=== PATIENT | male | born 1950 | race Caucasian/White ===

== ENCOUNTER 2019-02-21 20:37 | Emergency (ER) | payer BC, MEDICARE ==
[~2019-02-21 20:37] MED LIST: Iopamidol 370 76% 100 ML VIAL ONE
[2019-02-21 21:22] LABS: #Eosinphils 0.1 thou/uL (0.0-0.7); #Lymphocytes 0.7 thou/uL (1.20-3.40); #Monocytes 0.5 thou/uL (0.11-0.59); #Neutrophils 7.2 thou/uL (1.40-6.50); %Basophils 0.1 % (0.0-1.0); %Eosinophils 1.5 % (0.0-10.0); %Neutrophils 84.4 % (42.0-75.0); Mean Corpuscular Hemoglobin 29.1 pg (27.0-31.0); Mean Corpuscular Volume 83.3 fL (78.0-98.0); Mean Platelet Volume 7.4 fL (7.4-10.4); Platelet Count 175 thou/uL (130-400); RBC Distribution Width 12.5 % (11.5-14.5); Red Blood Cell (RBC) Count 4.46 mill/uL (4.70-6.10); White Blood Cell (WBC) Count 8.5 thou/uL (4.8-10.8)
--- NOTE | 2019-02-21 21:29 | RAD ---
XR Chest 1 View Portable HISTORY: Right-sided pain. Shortness of breath. COMPARISON: 08/12/2015 exam. FINDINGS: Heart size is enlarged. Some linear interstitial changes in the bases suggest atelectasis. No signs of overt failure or focal infiltrates. IMPRESSION: Linear atelectasis in the lung bases. Cardiomegaly.
[2019-02-21 21:41] LABS: ALT (SGPT) 107 U/L (8-55); AST (SGOT) 69 U/L (5-34); Alkaline Phosphatase 215 U/L (40-110); Anion Gap 13 mmol/L (10-20); BUN (Urea Nitrogen) 11 mg/dL (8.4-25.7); Bilirubin, Total 0.7 mg/dL (0.2-1.2); Calc. Creatinine Clearance 0 mL/min (70-130); Carbon Dioxide 22 mmol/L (23-31); Chloride 104 mmol/L (98-107); Estimated GFR-MDRD 86; Glucose 196 mg/dL (80-115); Lipase 43 U/L (8-78); Potassium 3.3 mmol/L (3.5-5.1); Sodium 136 mmol/L (136-145)
[2019-02-21] MEDS ORDERED: Ondansetron PF 4 MG/2 ML Vial ONE (22:58)
[2019-02-21] MEDS ORDERED: Morphine 4 MG/ML VIAL ONE (22:58)
--- NOTE | 2019-02-21 23:05 | CT ---
CT Abdomen Pelvis W Con HISTORY: Right-sided abdomen pain. Diarrhea. Prostate cancer. COMPARISON: 06/13/2016 study. FINDINGS: The lung bases show subsegmental atelectatic change. The liver has a very heterogeneous appearance with fatty change. Liver shows a very heterogeneous diego earance I believe that this is related to the fatty change cannot totally exclude the possibly at there are masses Heaven no definitive distortion of the vessels. An ultrasound would be helpful in co nfirming the lack of any mass. The liver is enlarged measuring greater than 24 cm. The spleen measures 13.5 cm. Pancreas region is unremarkable. Gallbladder has been removed. Right and left adrenal glands and right and left kidneys are normal in size. There is no significant periaortic or mesenteric lymphadenopathy. CT of pelvis performed with contrast enhancement: Postop prostatectomy changes noted. No adenopathy o r mass. There are arthritic changes of the spine with bilateral pars defects and spondylolisthesis of L5 on S 1. IMPRESSION: 1. Enlarged liver with fatty change with a heterogeneous appearance which I believe is related to the fatty change and less likely related to mass lesions although the possibility of diffuse masses are not totally excluded. Ultrasound would be helpful in excluding this possibility. 2. Postop prostatectomy change.
--- NOTE | 2019-02-24 15:38 | EKG ---
Test Reason : CP Blood Pressure : / mmHG Vent. Rate : 078 BPM Atrial Rate : 078 BPM P-R Int : 166 ms QRS Dur : 108 ms QT Int : 454 ms P-R-T Axes : 019 003 027 degrees QTc Int : 517 ms Normal sinus rhythm Incomplete right bundle branch block Nonspecific T wave abnormality Prolonged QT Abnormal ECG Confirmed by GABINO PINEDA DO ([id number]), assistant production editor REYNALDO PEDRAZA ([id number]) on 02/24/2019 3:38:16 PM Referred By: Confirmed By:GABINO PINEDA DO
== END 2019-02-21 22:48 | disposition home or self-care (01) ==
LOC: ERS 20:37
DX: K76.0 Fatty (change of) liver, not elsewhere classified (principal); R94.5 Abnormal results of liver function studies; K21.9 Gastro-esophageal reflux disease without esophagitis; I10 Essential (primary) hypertension; F17.220 Nicotine dependence, chewing tobacco, uncomplicated; Z79.899 Other long term (current) drug therapy
CPT/HCPCS: 71045; 74177; 80053; 83690; 84484; 85025; 93005; 96361; 96374; 96375; J2270; J2405; Q9967

== ENCOUNTER 2019-02-23 15:46 | Inpatient (IN) | payer BC, MEDICARE ==
[2019-02-23] MEDS ORDERED: traMADol HCl 50 MG TAB PO PRN (17:52)
[2019-02-23 18:09] VITALS: BMI 38.8
[2019-02-23] MEDS: traMADol HCl 50 MG TAB PO PRN (18:12)
[2019-02-23 18:29] LABS: #Lymphocytes 0.6 thou/uL (1.20-3.40); #Monocytes 0.4 thou/uL (0.11-0.59); #Neutrophils 6.9 thou/uL (1.40-6.50); %Basophils 0.1 % (0.0-1.0); %Eosinophils 0.5 % (0.0-10.0); %Lymphocytes 7.1 % (21.0-51.0); %Monocytes 5.4 % (0.0-10.0); %Neutrophils 86.9 % (42.0-75.0); Hemoglobin 12.7 g/dL (14.0-18.0); Mean Corpuscular Hemoglobin 28.7 pg (27.0-31.0); Mean Corpuscular Volume 84.4 fL (78.0-98.0); Mean Platelet Volume 7.2 fL (7.4-10.4); Platelet Count 182 thou/uL (130-400); RBC Distribution Width 12.7 % (11.5-14.5); Red Blood Cell (RBC) Count 4.44 mill/uL (4.70-6.10); White Blood Cell (WBC) Count 7.9 thou/uL (4.8-10.8)
[2019-02-23 18:35] LABS: Prothrombin Time 13.5 SEC (12.0-14.7)
[2019-02-23 18:49] LABS: ALT (SGPT) 100 U/L (8-55); AST (SGOT) 72 U/L (5-34); Albumin 3.9 g/dL (3.4-4.8); Alkaline Phosphatase 221 U/L (40-110); Anion Gap 12 mmol/L (10-20); BUN (Urea Nitrogen) 14 mg/dL (8.4-25.7); Bilirubin, Total 1.2 mg/dL (0.2-1.2); Calc. Creatinine Clearance 129 mL/min (70-130); Calcium 9.3 mg/dL (7.8-10.44); Carbon Dioxide 25 mmol/L (23-31); Chloride 103 mmol/L (98-107); Estimated GFR-MDRD 79; Globulin 3.2 g/dL (2.4-3.5); Glucose 211 mg/dL (80-115); Potassium 3.5 mmol/L (3.5-5.1); Protein, Total 7.1 g/dL (5.8-8.1); Sodium 136 mmol/L (136-145)
[2019-02-23] MEDS ORDERED: Senokot S 8.6-50 MG TAB PO PRN (18:56)
[2019-02-23] MEDS ORDERED: Morphine 4 MG/ML VIAL SLOW IVP PRN (19:01)
[2019-02-23] MEDS ORDERED: Morphine 2 MG/ML SYRINGE SLOW IVP PRN ×2 (19:01→19:03)
[2019-02-23] MEDS: Multivitamins, Adult 10 ML in Lactated Ringer's 1,000 ML IV SCH (20:12)
[2019-02-23 20:16] LABS: Bacteria/HPF None Seen HPF (None Seen); Bilirubin Negative (Negative); Blood, Urine Negative (Negative); Clarity Clear (Clear); Glucose, Urine (Dipstick) Normal (Negative); Leukocyte Negative Leu/uL (Negative); Nitrite Negative (Negative); Protein, Urine (Dipstick) 30 mg/dL (Neg-Trace); RBC/HPF 0-3 HPF (0-3); Squamous Epithelial 0-3 HPF (0-3); WBC/HPF 0-3 HPF (0-3)
[2019-02-23] MEDS: Fentanyl 100 MCG/2 ML VIAL SLOW IVP PRN (21:58)
--- NOTE | 2019-02-23 22:04 | PDOC.HHP ---
Hospitalist HPI - History of Present Illness abdominal/flank pain History of Present Illness: 68M sent over as a direct admit from Dr. Min's office for x2 weeks of increasing right sided abdominal pain causing him to go to the ED on Saturday for pain control. He was found to have an enlarged liver on recent CT scan and elevated LFT's. He was seen by GI today and sent here for further work-up. C/o of dysuria, constipation x2 days, normally drinks alcohol but has not had a drink in 3 weeks. C/o of nausea, denies vomiting. Hospitalist ROS - Review of Systems Constitutional: reports: chills Eyes: denies: pain, vision change, conjunctivae inflammation, eyelid inflammation, redness, other ENT: denies: ear pain, ear discharge, nose pain, nose discharge, nose congestion , mouth pain, mouth swelling, throat pain, throat swelling, other Respiratory: denies: cough, dry, shortness of breath, hemoptysis, SOB with excertion, pleuritic pain, sputum, wheezing, other Cardiovascular: denies: chest pain, palpitations, orthopnea, paroxysmal noc. dyspnea, edema, light headedness, other Gastrointestinal: reports: nausea, abdominal pain, constipation Genitourinary: reports: dysuria Musculoskeletal: denies: neck pain, shoulder pain, arm pain, back pain, hand pain, leg pain, foot pain, other Skin: reports: gladys Neurological: denies: weakness, numbness, incoordination, change in speech, confusion, seizures, other - Medication Medications: Active Medications Generic Name Dose Route Start Last Admin Trade Name Freq PRN Reason Stop Dose Admin Multivitamins 10 ml/ Lactated 1,010 mls @ 75 mls/hr 02/23/19 18:00 02/23/19 20:12 Ringer's IV 1,010 mls Q24HR ARRON Administration Tramadol HCl 100 mg 02/23/19 17:53 02/23/19 18:12 Ultram PO 100 mg TIDPRN PRN Administration Moderate to Severe Pain (6-10) Hospitalist History - Past Medical History Cardiac: reports: no pertinent history, HTN, Hyperlipidemia Pulmonary: reports: no pertinent history [employer]: reports: no pertinent history Gastrointestinal: reports: GERD, Other (arnold's esophagus) Hepatobiliary: reports: no pertinent history, Cirrhosis, Hep A/B/C Psych: reports: no pertinent history Musculoskeletal: reports: Other (gout) Rheumatologic: reports: Gout Renal/: reports: Other (prostate ca) - Past Surgical History Past Surgical History: reports: Appendectomy, Cholecystectomy, TURP - Family History Family History: reports: gastrointestinal disorder - Social History Tobacco Type: chewing tobacco Alcohol: reports: Heavy Drugs: reports: none Living Situation: With Family Activity level: independent ambulation - Exam General Appearance: awake alert Eye: PERRL, scleral icterus ENT: normocephalic atraumatic, moist mucosa Neck: supple, no JVD Heart: RRR, normal peripheral pulses Respiratory: CTAB, normal chest expansion Gastrointestinal: soft, normal bowel sounds, tender to palpation, distended. negative: no hepatomegaly Extremities: no edema Skin: normal turgor Skin - other findings: yellow tint to skin Neurological: cranial nerve grossly intact Musculoskeletal: normal tone, normal strength Psychiatric: normal affect, A&O x 3 Hospitalist Results - Labs Result Diagrams: 02/23/19 18:18 02/23/19 18:18 Lab results: WBC 7.9 thou/uL (4.8-10.8) 02/23/19 18:18 Hgb 12.7 g/dL (14.0-18.0) L 02/23/19 18:18 Hct 37.4 % (42.0-52.0) L 02/23/19 18:18 MCV 84.4 fL (78.0-98.0) 02/23/19 18:18 Plt Count 182 thou/uL (130-400) 02/23/19 18:18 Neutrophils % 86.9 % (42.0-75.0) H 02/23/19 18:18 Sodium 136 mmol/L (136-145) 02/23/19 18:18 Potassium 3.5 mmol/L (3.5-5.1) 02/23/19 18:18 Chloride 103 mmol/L (98-107) 02/23/19 18:18 Carbon Dioxide 25 mmol/L (23-31) 02/23/19 18:18 BUN 14 mg/dL (8.4-25.7) 02/23/19 18:18 Creatinine 0.95 mg/dL (0.7-1.3) 02/23/19 18:18 Glucose 211 mg/dL (80-115) H 02/23/19 18:18 Calcium 9.3 mg/dL (7.8-10.44) 02/23/19 18:18 Total Bilirubin 1.2 mg/dL (0.2-1.2) 02/23/19 18:18 AST 72 U/L (5-34) H 02/23/19 18:18 ALT 100 U/L (8-55) H 02/23/19 18:18 Alkaline Phosphatase 221 U/L (40-110) H 02/23/19 18:18 Serum Total Protein 7.1 g/dL (5.8-8.1) 02/23/19 18:18 Albumin 3.9 g/dL (3.4-4.8) 02/23/19 18:18 Urine Ketones Trace mg/dL (Negative) A 02/23/19 19:51 Urine Blood Negative (Negative) 02/23/19 19:51 Urine Nitrite Negative (Negative) 02/23/19 19:51 Ur Leukocyte Esterase Negative Shira/uL (Negative) 02/23/19 19:51 Urine RBC 0-3 HPF (0-3) 02/23/19 19:51 Urine WBC 0-3 HPF (0-3) 02/23/19 19:51 Ur Squamous Epith Cells 0-3 HPF (0-3) 02/23/19 19:51 Urine Bacteria None Seen HPF (None Seen) 02/23/19 19:51 Hospitalist H&P A/P - Problem (1) Gout Code(s): M10.9 - GOUT, UNSPECIFIED Status: Chronic (2) Hyperlipidemia Code(s): E78.5 - HYPERLIPIDEMIA, UNSPECIFIED Status: Chronic (3) Hypertension Code(s): I10 - ESSENTIAL (PRIMARY) HYPERTENSION Status: Chronic (4) Alcoholic hepatitis Code(s): K70.10 - ALCOHOLIC HEPATITIS WITHOUT ASCITES Status: Acute (5) Hepatomegaly Code(s): R16.0 - HEPATOMEGALY, NOT ELSEWHERE CLASSIFIED Status: Acute (6) Prostate cancer Code(s): C61 - MALIGNANT NEOPLASM OF PROSTATE Status: Chronic - Plan Plan: # Dysuria: UA ordered # RUQ pain r/t hepatomegaly, alcoholic hepatitis: recheck labs in AM, pain medicine, protonix daily, IV fluids, banana bag, GI consult # Gout: restart home meds # HTN: restart home meds, add prn meds as needed # ETOH abuse: banana bag, thiamine, ASE protocol # Gerd: see #2 # DVT prevention ordered # Senokot S as needed for constipation Case discussed with Dr. Beard who agrees to plan
--- NOTE | 2019-02-24 01:10 | CON ---
DATE OF CONSULTATION: 02/23/2019 CHIEF COMPLAINT: Abdominal pain. HISTORY OF PRESENT ILLNESS: Mr. Luo is a 68-year-old man, who has had some right upper quadrant pain chronically over the last few years. He had undergone EGD and colonoscopy in June 2016. 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 Upper endoscopy was otherwise unremarkable except for some fundic gland polyps in the stomach that required no further intervention. His colon was normal except for a hyperplastic polyp, which was removed. Starting 3 weeks ago, he developed severe right-sided aching abdominal pain. The pain is below the right ribs and radiates around to his right back. He has had no nausea or vomiting with this. He has had some constipation over the last few months and has firmer stools every 2 or 3 days. He felt a little constipated on Saturday and he took a stimulant laxative. He believes Dulcolax and had a formed bowel movement and then a couple of liquidy stools. He went onto the emergency room yesterday due to ongoing severe abdominal pain. He had a CT scan performed that showed hepatomegaly and fatty liver. However, no obvious source for the abdominal pain was identified. He at baseline drinks 4-5 beers per day that quit 3 weeks ago due to the pain. He has had no blood in the stools. No chest pain or shortness of breath. He has had some chronic right upper quadrant abdominal pain, but this has been milder and different from the current pain. He has had no known prior kidney stones. He has had no rash developed over his abdomen in the area of the pain. PAST MEDICAL HISTORY: Ceballos's esophagus, prostate cancer treated with radiation and surgery, and alcohol abuse. PAST SURGICAL HISTORY: Appendectomy, cholecystectomy, prostatectomy. SOCIAL HISTORY: He drinks 5 or 6 beers per day, but states that he quit 3 weeks ago. He chews tobacco, but no smoking. No drugs. FAMILY HISTORY: Negative for GI malignancies. ALLERGIES: NO KNOWN DRUG ALLERGIES. MEDICATIONS: Prior to admission; 1. Allopurinol. 2. Amlodipine. 3. Pantoprazole. 4. Atorvastatin. REVIEW OF SYSTEMS: Negative x10 systems reviewed, except as stated in history of present illness. PHYSICAL EXAMINATION: VITAL SIGNS: Temperature 97.9, pulse 72, blood pressure 180/76. GENERAL: He is in no acute distress. Alert and oriented x3. He is obese. HEENT: Eyes have no scleral icterus. Oropharynx is clear without lesions. No cervical or supraclavicular lymphadenopathy. LUNGS: Clear to auscultation bilaterally. HEART: Regular rate and rhythm without murmur. ABDOMEN: Protuberant, but soft. He has marked tenderness over the right upper quadrant at the liver edge. States this pain radiates around towards the right flank. Again, there is no rash in this area. EXTREMITIES: No lower extremity edema. NEUROLOGIC: Cranial nerves are grossly intact. LABORATORY DATA: White blood cell count 7.9, hemoglobin 12.7, platelets 182, eosinophilic count is normal. INR 1.0. Creatinine 0.95, bilirubin 1.2, AST 72, ALT 100, alkaline phosphatase 221, albumin 3.9. IMPRESSION: 1. Right upper quadrant abdominal pain. He has significant tenderness over the liver edge. He has marked hepatomegaly and fatty liver. He could have some pain from distention of the liver capsule. His transaminases and alkaline phosphatase are elevated. He had been drinking at least 5 or 6 beers per day prior to 3 weeks ago. He does not have obvious signs of cirrhosis based on the current labs and imaging. Choledocholithiasis is a consideration. However, his bilirubin is normal. We will assess the size of his bile duct. There is no rash to suggest zoster. Kidney stone is a consideration and I will request urinalysis. I reviewed the CT scan images and there is no significant constipation in the right colon to indicate constipation as a source for his abdominal pain. Again, his liver is tender. 2. Hepatomegaly and abnormal liver tests. RECOMMENDATIONS: 1. Check viral hepatitis panel. 2. Check iron saturation, smooth muscle antibody, and mitochondrial antibody. 3. Check urinalysis. 4. Ultrasound of the liver with Dopplers. The large fatty liver was read by radiology such that ultrasound was also recommended to rule out a solid mass lesion. We will plan Dopplers to rule out hepatic vein thrombosis or portal vein thrombosis. Ultimately, MRI or MRCP might also be required. Job ID: [id number]
[2019-02-24] MEDS: Fentanyl 100 MCG/2 ML VIAL SLOW IVP PRN ×6 (01:11→21:37)
[2019-02-24] MEDS: traMADol HCl 50 MG TAB PO PRN ×2 (01:23→16:26)
[2019-02-24] MEDS: Amlodipine 10 MG TAB PO SCH (01:26)
[2019-02-24 05:36] LABS: INR-International Normal Ratio 1.1; PTT 32.1 SEC (22.9-36.1); Prothrombin Time 14.1 SEC (12.0-14.7)
[2019-02-24 05:43] LABS: #Eosinphils 0.2 thou/uL (0.0-0.7); #Lymphocytes 1.1 thou/uL (1.20-3.40); #Monocytes 0.6 thou/uL (0.11-0.59); #Neutrophils 5.7 thou/uL (1.40-6.50); %Basophils 0.4 % (0.0-1.0); %Eosinophils 2.6 % (0.0-10.0); %Monocytes 7.6 % (0.0-10.0); %Neutrophils 75.3 % (42.0-75.0); Hemoglobin 12.7 g/dL (14.0-18.0); Mean Corpuscular HGB CONC 33.3 g/dL (32.0-36.0); Mean Corpuscular Hemoglobin 28.3 pg (27.0-31.0); Mean Corpuscular Volume 85.1 fL (78.0-98.0); Mean Platelet Volume 7.4 fL (7.4-10.4); Platelet Count 196 thou/uL (130-400); RBC Distribution Width 12.7 % (11.5-14.5); Red Blood Cell (RBC) Count 4.49 mill/uL (4.70-6.10); White Blood Cell (WBC) Count 7.6 thou/uL (4.8-10.8)
[2019-02-24 06:11] LABS: ALT (SGPT) 108 U/L (8-55); AST (SGOT) 92 U/L (5-34); Albumin 3.7 g/dL (3.4-4.8); Alkaline Phosphatase 225 U/L (40-110); Anion Gap 12 mmol/L (10-20); BUN (Urea Nitrogen) 10 mg/dL (8.4-25.7); Bilirubin, Total 1.3 mg/dL (0.2-1.2); Calc. Creatinine Clearance 166 mL/min (70-130); Calcium 8.9 mg/dL (7.8-10.44); Carbon Dioxide 27 mmol/L (23-31); Chloride 104 mmol/L (98-107); Estimated GFR-MDRD Greater than 90; Globulin 3.1 g/dL (2.4-3.5); Glucose 111 mg/dL (80-115); Iron 40 ug/dL (65-175); Iron Binding Capacity, Total 291 mcg/dL (261-462); Potassium 3.6 mmol/L (3.5-5.1); Protein, Total 6.8 g/dL (5.8-8.1); Sodium 139 mmol/L (136-145)
[2019-02-24 06:29] LABS: HBCM Index 0.18 S/CO (0-0.79); HBSAg Index 0.17 S/CO (0-0.99); Hep A IgM AB Non-Reactive (NonReactive); Hep A IgM S/CO 0.37 S/CO (0-0.79); Hep B Surf Ag Non-Reactive S/CO (NonReactive); Hep C IgG Ab Non-Reactive (NonReactive); Hep C Index 0.11 S/CO (0-0.79); Hepatitis B Core IgM Abs Non-Reactive (NonReactive)
--- NOTE | 2019-02-24 08:53 | ULT ---
Exam: Grayscale imaging of the liver and hepatic Doppler HISTORY: Alcoholic hepatitis. Right upper quadrant pain. TECHNIQUE: Grayscale, color flow, Doppler imaging and spectral waveform analysis of the hepatic vascu lature is performed. FINDINGS: Limited evaluation of the aorta and pancreas due to shadowing. Heterogeneous echotexture of liver due to hepatic steatosis or hepatocellular disease. Limited evalua tion for hepatic masses and intrahepatic biliary dilatation. Surgically absent gallbladder. Right kidney demonstrates cortical thinning. No hydronephrosis. Right kidney measures 5.2 x 13.7 x 5. 3 cm. Left kidney demonstrates cortical thinning. No hydronephrosis. Left kidney measures 6.4 x 5.2 x 15.0 cm. Spleen has a normal echotexture, measuring 14.7 cm. Hepatic Doppler: There is patency and appropriate directional flow in the left portal vein, right por rory vein, main portal vein, middle hepatic vein, right hepatic vein, left hepatic vein, hepatic artery. Splenic vein and artery are patent and have appropriate directional flow. Limited evaluation the portal confluence. IMPRESSION: 1. Normal hepatic Doppler. 2. Heterogeneous echotexture of the liver which may be due to hepatic steatosis or hepatocellular dis ease. Limited evaluation for hepatic masses and intrahepatic biliary dilatation. 3. Splenomegaly. Transcribed Date/Time: 02/24/2019 9:50 AM
[2019-02-24] MEDS: Folic Acid 1 MG TAB PO SCH (09:23)
[2019-02-24] MEDS: Thiamine 100 MG TAB PO SCH (09:23)
[2019-02-24] MEDS: Allopurinol 300 MG TAB PO SCH (09:23)
[2019-02-24] MEDS: Enoxaparin Sodium 40 MG/0.4 ML SYRINGE SC SCH (09:24)
--- NOTE | 2019-02-24 12:22 | PDOC.HOSPP ---
- Subjective Encounter Date: 02/24/19 Encounter Time: 08:30 Subjective: c/o ruq pain, nausea, loss of appetite at bedside has not vomitted - Objective Vital Signs & Weight: Vital Signs (12 hours) Temp Pulse Resp BP BP BP 02/24/19 08:00 97.6 F 62 02/24/19 07:43 97.6 F 62 20 159/79 H 02/24/19 04:00 97.7 F 62 20 171/82 H 02/24/19 01:26 70 174/82 H Weight Weight 263 lb I&O: 02/23/19 02/24/19 02/25/19 06:59 06:59 06:59 Intake Total 480 Balance 480 Result Diagrams: 02/24/19 05:13 02/24/19 05:13 Hospitalist ROS - Medication Medications: Active Medications Generic Name Dose Route Start Last Admin Trade Name Freq PRN Reason Stop Dose Admin Allopurinol 300 mg 02/24/19 09:00 02/24/19 09:23 Zyloprim PO 300 mg DAILY ARRON Administration Amlodipine Besylate 10 mg 02/24/19 09:00 02/24/19 01:26 Norvasc PO 10 mg DAILY ARRON Administration Enoxaparin Sodium 40 mg 02/24/19 09:00 02/24/19 09:24 Lovenox SC 40 mg 0900 ARRON Administration Fentanyl 25 mcg 02/23/19 20:07 02/24/19 09:33 Sublimaze SLOW IVP 25 mcg Q2H PRN Administration Breakthrough Pain Folic Acid 1 mg 02/24/19 09:00 02/24/19 09:23 Folvite PO 1 mg DAILY ARRON Administration Multivitamins 10 ml/ Lactated 1,010 mls @ 75 mls/hr 02/23/19 18:00 02/23/19 20:12 Ringer's IV 1,010 mls Q24HR ARRON Administration Pantoprazole Sodium 40 mg 02/24/19 09:00 02/24/19 09:23 Protonix PO 40 mg DAILY ARRON Administration Sodium Chloride 10 ml 02/23/19 18:56 02/24/19 09:24 Flush - Normal Saline IVF 10 ml PRN PRN Administration Saline Flush Thiamine HCl 100 mg 02/24/19 09:00 02/24/19 09:23 Thiamine PO 100 mg DAILY ARRON Administration Tramadol HCl 100 mg 02/23/19 17:53 02/24/19 01:23 Ultram PO 100 mg TIDPRN PRN Administration Moderate to Severe Pain (6-10) - Exam General Appearance: awake alert Eye: PERRL, anicteric sclera ENT: no oropharyngeal lesions, moist mucosa Neck: supple, no JVD Heart: RRR, no murmur Respiratory: no wheezes, no rales Gastrointestinal: soft, non-distended, normal bowel sounds, no guarding, no rigidity, tender to palpation Extremities: no cyanosis, no edema Neurological: cranial nerve grossly intact, no focal deficits Psychiatric: normal affect, A&O x 3 Hosp A/P (1) Hepatomegaly Code(s): R16.0 - HEPATOMEGALY, NOT ELSEWHERE CLASSIFIED Status: Acute (2) Alcoholic hepatitis Code(s): K70.10 - ALCOHOLIC HEPATITIS WITHOUT ASCITES Status: Acute Qualifiers: Ascites presence: without ascites Qualified Code(s): K70.10 - Alcoholic hepatitis without ascites (3) Obesity (BMI 30-39.9) Code(s): E66.9 - OBESITY, UNSPECIFIED Status: Chronic (4) Gout Code(s): M10.9 - GOUT, UNSPECIFIED Status: Chronic Qualifiers: Gout site: unspecified site (5) Hyperlipidemia Code(s): E78.5 - HYPERLIPIDEMIA, UNSPECIFIED Status: Chronic Qualifiers: Hyperlipidemia type: unspecified Qualified Code(s): E78.5 - Hyperlipidemia , unspecified (6) Hypertension Code(s): I10 - ESSENTIAL (PRIMARY) HYPERTENSION Status: Chronic Qualifiers: Hypertension type: essential hypertension Qualified Code(s): I10 - Essential (primary) hypertension (7) Prostate cancer Code(s): C61 - MALIGNANT NEOPLASM OF PROSTATE Status: Chronic - Plan ruq usg did not show evidence of portal/hepatic vein thrombosis, biliary ducts were not visualized well? suggest small dose of steroids to help with pain? is on norvasc, fentanyl prn, iv hydration/banana bag, protonix hemostable dulcolax suppository, stool regimen, to ambulate in hallway
[2019-02-24] MEDS ORDERED: Bisacodyl 10 MG SUPP PR PRN (12:26)
[2019-02-24] MEDS ORDERED: Fleet Enema 133 ML BOT PR PRN (12:26)
[2019-02-24] MEDS ORDERED: Ondansetron PF 4 MG/2 ML Vial IVP PRN (15:28)
[2019-02-24] MEDS: Multivitamins, Adult 10 ML in Lactated Ringer's 1,000 ML IV SCH (18:12)
[2019-02-24] MEDS: Docusate 100 MG CAP PO SCH (21:36)
--- NOTE | 2019-02-24 23:13 | PRG ---
DATE OF SERVICE: 02/24/2019 SUBJECTIVE: Mr. Luo continues to have right upper quadrant abdominal pain. He had very little appetite and only took a small amount of clear liquids today. He had an ultrasound performed. OBJECTIVE: VITAL SIGNS: Temperature 97.5, pulse is 69, blood pressure 169/64. GENERAL: He is in no acute distress. Alert and oriented x3. LUNGS: Clear to auscultation bilaterally. HEART: Regular rate and rhythm without murmur. ABDOMEN: Soft, tender in the right upper quadrant without guarding. Bowel sounds are present. EXTREMITIES: No lower extremity edema. LABORATORY DATA: White blood cell count 7.6, hemoglobin 12.7, platelets 196. INR 1.1. Bilirubin is 1.3, AST 92, ALT 108, alkaline phosphatase 225, creatinine 0.74. Viral hepatitis screen is negative. IMPRESSION: 1. Right upper quadrant pain. Still with persistent tenderness and pain and loss of appetite. 2. His bilirubin and alkaline phosphatase increased slightly. We will rule out choledocholithiasis. His pattern of liver tests are not really consistent with alcoholic hepatitis. 3. Does drink a 6 pack per day and 12 pack on the weekends; however, states that he has not had any alcohol in the last 3 weeks. RECOMMENDATIONS: MRCP with MRI of the liver tomorrow. Job ID: [id number]
[2019-02-25] MEDS: traMADol HCl 50 MG TAB PO PRN ×2 (00:24→20:08)
[2019-02-25] MEDS: Fentanyl 100 MCG/2 ML VIAL SLOW IVP PRN ×2 (02:20→15:23)
[2019-02-25 07:26] LABS: #Basophils 0.1 thou/uL (0.0-0.2); #Eosinphils 0.2 thou/uL (0.0-0.7); #Lymphocytes 0.9 thou/uL (1.20-3.40); #Monocytes 0.6 thou/uL (0.11-0.59); #Neutrophils 5.8 thou/uL (1.40-6.50); %Basophils 0.7 % (0.0-1.0); %Eosinophils 2.9 % (0.0-10.0); %Lymphocytes 12.2 % (21.0-51.0); %Monocytes 7.2 % (0.0-10.0); Hemoglobin 12.5 g/dL (14.0-18.0); Mean Corpuscular HGB CONC 33.5 g/dL (32.0-36.0); Mean Corpuscular Hemoglobin 28.3 pg (27.0-31.0); Mean Corpuscular Volume 84.7 fL (78.0-98.0); Mean Platelet Volume 7.4 fL (7.4-10.4); Platelet Count 209 thou/uL (130-400); RBC Distribution Width 12.6 % (11.5-14.5); Red Blood Cell (RBC) Count 4.41 mill/uL (4.70-6.10); White Blood Cell (WBC) Count 7.6 thou/uL (4.8-10.8)
[2019-02-25 07:42] LABS: ALT (SGPT) 112 U/L (8-55); AST (SGOT) 100 U/L (5-34); Albumin 3.7 g/dL (3.4-4.8); Alkaline Phosphatase 220 U/L (40-110); Anion Gap 11 mmol/L (10-20); BUN (Urea Nitrogen) 13 mg/dL (8.4-25.7); Bilirubin, Total 1.2 mg/dL (0.2-1.2); Calc. Creatinine Clearance 139 mL/min (70-130); Calcium 9.1 mg/dL (7.8-10.44); Carbon Dioxide 31 mmol/L (23-31); Chloride 102 mmol/L (98-107); Estimated GFR-MDRD 87; Glucose 104 mg/dL (80-115); Potassium 4.3 mmol/L (3.5-5.1); Protein, Total 6.7 g/dL (5.8-8.1); Sodium 140 mmol/L (136-145)
[2019-02-25] MEDS: Docusate 100 MG CAP PO SCH ×2 (09:11→20:08)
[2019-02-25] MEDS: Amlodipine 10 MG TAB PO SCH (09:11)
[2019-02-25] MEDS: Folic Acid 1 MG TAB PO SCH ×2 (09:11→09:21)
[2019-02-25] MEDS: Polyethylene Glycol 3350 17 GM Packet PO SCH (09:12)
[2019-02-25] MEDS: Allopurinol 300 MG TAB PO SCH ×2 (09:12→09:19)
[2019-02-25] MEDS: Thiamine 100 MG TAB PO SCH ×2 (09:12→09:21)
[2019-02-25] MEDS: Enoxaparin Sodium 40 MG/0.4 ML SYRINGE SC SCH (09:12)
--- NOTE | 2019-02-25 13:15 | PDOC.HOSPP ---
- Subjective Encounter Date: 02/25/19 Encounter Time: 07:45 Subjective: abd pain is better is amb in room, counselled to walk in hallway has not passed any stool from saturday, is passing flatus - Objective Vital Signs & Weight: Vital Signs (12 hours) Temp Pulse Resp BP BP Pulse Ox 02/25/19 12:16 97.8 F 64 20 180/78 H 94 L 02/25/19 09:11 64 170/82 H 02/25/19 08:00 97.5 F L 89 L 02/25/19 07:59 97.5 F L 64 20 170/82 H 90 L Weight Admit Weight 263 lb Weight 263 lb I&O: 02/24/19 02/25/19 02/26/19 06:59 06:59 06:59 Intake Total 480 1320 60 Output Total 600 Balance 480 720 60 Result Diagrams: 02/25/19 07:08 02/25/19 07:08 Hospitalist ROS - Medication Medications: Active Medications Generic Name Dose Route Start Last Admin Trade Name Freq PRN Reason Stop Dose Admin Allopurinol 300 mg 02/24/19 09:00 02/25/19 09:19 Zyloprim PO Not Given DAILY ARRON Amlodipine Besylate 10 mg 02/24/19 09:00 02/25/19 09:11 Norvasc PO 10 mg DAILY ARRON Administration Docusate Sodium 100 mg 02/24/19 21:00 02/25/19 09:11 Colace PO 100 mg BID ARRON Administration Enoxaparin Sodium 40 mg 02/24/19 09:00 02/25/19 09:12 Lovenox SC 40 mg 09 ARRON Administration Fentanyl 25 mcg 02/23/19 20:07 02/25/19 02:20 Sublimaze SLOW IVP 25 mcg Q2H PRN Administration Breakthrough Pain Folic Acid 1 mg 02/24/19 09:00 02/25/19 09:21 Folvite PO Not Given DAILY [facility] Multivitamins 10 ml/ Lactated 1,010 mls @ 75 mls/hr 02/23/19 18:00 02/24/19 18:12 Ringer's IV 1,010 mls Q24HR ARRON Administration Pantoprazole Sodium 40 mg 02/24/19 09:00 02/25/19 09:11 Protonix PO 40 mg DAILY ARRON Administration Polyethylene Glycol 17 gm 02/25/19 09:00 02/25/19 09:12 Miralax PO 17 gm DAILY ARRON Administration Sodium Chloride 10 ml 02/23/19 18:56 02/24/19 09:24 Flush - Normal Saline IVF 10 ml PRN PRN Administration Saline Flush Thiamine HCl 100 mg 02/24/19 09:00 02/25/19 09:21 Thiamine PO Not Given DAILY ARRON Tramadol HCl 100 mg 02/23/19 17:53 02/25/19 00:24 Ultram PO 100 mg TIDPRN PRN Administration Moderate to Severe Pain (6-10) - Exam General Appearance: awake alert Eye: PERRL, anicteric sclera ENT: no oropharyngeal lesions, moist mucosa Neck: supple, no JVD Heart: RRR, no murmur Respiratory: no wheezes, no rales Gastrointestinal: soft, non-distended, normal bowel sounds, tender to palpation Extremities: no cyanosis, no edema Neurological: cranial nerve grossly intact, no focal deficits Psychiatric: normal affect, A&O x 3 Hosp A/P (1) Abdominal pain Code(s): R10.9 - UNSPECIFIED ABDOMINAL PAIN Status: Acute Qualifiers: Abdominal location: right upper quadrant Qualified Code(s): R10.11 - Right upper quadrant pain (2) Hepatomegaly Code(s): R16.0 - HEPATOMEGALY, NOT ELSEWHERE CLASSIFIED Status: Acute (3) Alcoholic hepatitis Code(s): K70.10 - ALCOHOLIC HEPATITIS WITHOUT ASCITES Status: Suspected Qualifiers: Ascites presence: without ascites Qualified Code(s): K70.10 - Alcoholic hepatitis without ascites (4) Obesity (BMI 30-39.9) Code(s): E66.9 - OBESITY, UNSPECIFIED Status: Chronic (5) Gout Code(s): M10.9 - GOUT, UNSPECIFIED Status: Chronic Qualifiers: Gout site: unspecified site (6) Hyperlipidemia Code(s): E78.5 - HYPERLIPIDEMIA, UNSPECIFIED Status: Chronic Qualifiers: Hyperlipidemia type: unspecified Qualified Code(s): E78.5 - Hyperlipidemia , unspecified (7) Hypertension Code(s): I10 - ESSENTIAL (PRIMARY) HYPERTENSION Status: Chronic Qualifiers: Hypertension type: essential hypertension Qualified Code(s): I10 - Essential (primary) hypertension (8) Prostate cancer Code(s): C61 - MALIGNANT NEOPLASM OF PROSTATE Status: Chronic - Plan for mri of ruq today, pain is better is constipated, to get a dulcolax suppository today, fleets enema if needed. ruq usg did not show evidence of portal/hepatic vein thrombosis, biliary ducts were not visualized well? is on norvasc, ultram and fentanyl prn, iv hydration/banana bag, protonix hemostable stool regimen, to ambulate in hallway
--- NOTE | 2019-02-25 15:47 | PRG ---
DATE OF SERVICE: 02/25/2019 SUBJECTIVE: Mr. Luo continues to complain of right upper quadrant abdominal pain. This may be a little better today than yesterday. OBJECTIVE: VITAL SIGNS: Temperature 97.8, blood pressure 180/78, and pulse 64. GENERAL: He is in no acute distress. He is alert and oriented x3. LUNGS: Clear to auscultation bilaterally. HEART: Regular rate and rhythm without murmur. ABDOMEN: Soft, tender in the right upper quadrant below the right ribs. Bowel sounds are present. EXTREMITIES: No lower extremity edema. IMPRESSION: 1. Right upper quadrant abdominal pain. The source of this pain is undetermined. He has undergone CT scan and ultrasound without obvious source of the pain. He does have associated elevation of the liver tests. He is status post cholecystectomy, but could have a primary common bile duct stone. We have requested magnetic resonance cholangiopancreatography for today. If the magnetic resonance cholangiopancreatography is negative, then consider nerve related pain, possibly of spine origin. 2. Abnormal liver tests. This most likely is due to fatty liver disease. We will again rule out choledocholithiasis. RECOMMENDATIONS: MRI/MRCP today. Job ID: [id number]
[2019-02-25] MEDS: Multivitamins, Adult 10 ML in Lactated Ringer's 1,000 ML IV SCH (18:08)
[2019-02-26 06:35] LABS: ALT (SGPT) 110 U/L (8-55); AST (SGOT) 115 U/L (5-34); Albumin 3.5 g/dL (3.4-4.8); Alkaline Phosphatase 229 U/L (40-110); Anion Gap 14 mmol/L (10-20); BUN (Urea Nitrogen) 13 mg/dL (8.4-25.7); Bilirubin, Total 1.4 mg/dL (0.2-1.2); Calc. Creatinine Clearance 150 mL/min (70-130); Calcium 8.8 mg/dL (7.8-10.44); Carbon Dioxide 27 mmol/L (23-31); Chloride 104 mmol/L (98-107); Estimated GFR-MDRD Greater than 90; Globulin 2.8 g/dL (2.4-3.5); Glucose 85 mg/dL (80-115); Potassium 3.5 mmol/L (3.5-5.1); Protein, Total 6.3 g/dL (5.8-8.1); Sodium 141 mmol/L (136-145)
[2019-02-26] MEDS: Docusate 100 MG CAP PO SCH ×2 (08:08→19:44)
[2019-02-26] MEDS: Polyethylene Glycol 3350 17 GM Packet PO SCH (08:08)
[2019-02-26] MEDS: Allopurinol 300 MG TAB PO SCH (08:08)
[2019-02-26] MEDS: Amlodipine 10 MG TAB PO SCH (08:09)
[2019-02-26] MEDS: Thiamine 100 MG TAB PO SCH (08:10)
[2019-02-26] MEDS: Enoxaparin Sodium 40 MG/0.4 ML SYRINGE SC SCH (08:10)
[2019-02-26] MEDS: Folic Acid 1 MG TAB PO SCH (08:10)
[2019-02-26] MEDS: traMADol HCl 50 MG TAB PO PRN ×2 (08:55→17:24)
[2019-02-26] MEDS ORDERED: Lorazepam 2 MG/ML VIAL SLOW IVP SCH (09:30)
[2019-02-26] MEDS: Multivitamins, Adult 10 ML in Lactated Ringer's 1,000 ML IV SCH (17:25)
--- NOTE | 2019-02-26 17:27 | PDOC.PALCO ---
Palliative Care Consult - Allergies Allergies/Adverse Reactions: Allergies Allergy/AdvReac Type Severity Reaction Status Date / Time No Known Allergies Allergy Verified 08/26/15 18:57 - Objective Vital Signs: Vital Signs - Most Recent Temp Pulse Resp BP Pulse Ox 98.2 F 63 20 151/71 H 92 L 02/26/19 07:38 02/26/19 08:09 02/26/19 07:38 02/26/19 11:15 02/26/19 07:38 - Plan/Recommendations Plan: [] minutes spent on this encounter with >50% of the time in counseling and coordination of care. Thank you for this very appropriate consult.
--- NOTE | 2019-02-26 18:52 | PRG ---
DATE OF SERVICE: 02/26/2019 SUBJECTIVE: Mr. Luo continues to have the right upper quadrant pain. This is worse when he moves around or when he takes deep breath. Pain does not seem to be obviously associated with meals. He had a bowel movement today, but really again had no significant change in his abdominal pain. OBJECTIVE: VITAL SIGNS: Temperature is 98.2, pulse 63, blood pressure 151/71. GENERAL: He is in no acute distress. He is alert and oriented x3. LUNGS: Clear to auscultation bilaterally. HEART: Regular rate and rhythm without murmur. ABDOMEN: Soft. He is tender in the right upper abdomen around his liver edge. He has significant hepatomegaly. Pain radiates around toward his right back. The abdomen is otherwise nontender. EXTREMITIES: No lower extremity edema. LABORATORY DATA: His white blood cell count is 7.6 yesterday, creatinine 0.82, bilirubin 1.4, AST 115, ALT 110, alkaline phosphatase 229, albumin 3.5, globulin is 2.8. IMPRESSION: 1. Right upper quadrant abdominal pain radiates around toward his right back and tender to palpation over enlarged liver edge. CT scan of the abdomen and pelvis on 02/21/2019 showed hepatomegaly, but not obvious other source for his abdominal pain. He had an ultrasound with Dopplers performed on 02/24/2019, which showed no focal liver lesion and normal Dopplers. His spleen was noted to be enlarged at 14.7 cm as well. He has had prior cholecystectomy. His liver tests are elevated with a mixed hepatocellular and cholestatic pattern. He could have a primary bile duct stone; however, the imaging did not show obvious biliary dilation. The ultrasound did not show the bile ducts well. 2. Neuropathic pain. It is possible if he has spinal source for his pain. There is no rash to suggest zoster. His colon was not distended with stool and his pain is not improved with bowel movement. He had a similar pain a couple of years ago, but it was not this severe. He did have upper and lower endoscopy at that time. 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 The pain has since returned, though recently with greater severity. Urinalysis is negative for blood and his white blood cell count is negative in the urinalysis. 3. Abnormal liver tests. Again, this could be related to a primary bile duct issue or more likely has underlying fatty liver disease. His spleen is enlarged, which may indicate portal hypertension. His platelet count is normal. His viral hepatitis screen is negative. The smooth muscle antibody and mitochondrial antibody are pending. RECOMMENDATIONS: 1. He was unable to do the MRI because the MRI scanner squeezed his abdomen and it was uncomfortable for him. The [facility] has a larger bore MRI, which I think would work just fine for him. We will work on arranging an MRI/MRCP of his abdomen as an outpatient at the [facility]. If we are unable to get his pain control to a point that he could be discharged, then we can enquire further about possibility for transfer for the MRI. 2. At this point, he is tolerating full liquid diet, but is not taking much of the time. We will advance to a heart healthy diet now. Dr. Hitchcock will be covering for me tomorrow. If his pain is adequately controlled, then he could potentially discharge home tomorrow and then we can arrange outpatient MRI/MRCP. If not, then we will continue to address as an inpatient. Job ID: [id number]
[2019-02-27] MEDS: traMADol HCl 50 MG TAB PO PRN ×2 (01:42→22:11)
--- NOTE | 2019-02-27 09:12 | CT ---
CT THORACIC SPINE WITHOUT CONTRAST: HISTORY: Back pain. Abdominal pain. Evaluate for fracture. COMPARISON: None. FINDINGS: The visualized mediastinum is unremarkable. There are chronic changes in the lung bases with small ef fusions. Visualized solid organs are grossly unremarkable. Atherosclerosis of a nonaneurysmal aorta. Twelve thoracic-type vertebrae. Thoracic spine vertebral body height is maintained. There is no fract ure. No malalignment. Extensive osteophyte formation throughout the thoracic spine. Correlate for DISH. There is no evidence of high-grade central canal stenosis. No evidence of high-grade neural foraminal narrowing. There is moderate central canal stenosis at T11-T12. IMPRESSION: No fracture. Extensive degenerative changes, correlate for DISH. Moderate central canal stenosis at T 11-T12. Transcribed Date/Time: 02/27/2019 9:19 AM
--- NOTE | 2019-02-27 09:29 | CT ---
CT lumbar spine noncontrast: DATE: 02/27/2019 HISTORY: 68-year-old male with low back pain. "Rule out fracture." FINDINGS: There is a transitional level at the lumbosacral junction. After 5 nonrib-bearing lumbar-type vertebr ae, the transitional level could either be labeled as L6 or a partially lumbarized S1. Based on the fact that there would be 5 sacral vertebrae if that level is labeled as L6 (based on sagittal reconst ructions of abdominal and pelvic CT of 02/21/2019), the L6 designation will be used. Vertebral body heights are maintained. No acute fracture lucency is visualized. T11-12: Mild disc space narrowing. Shallow broad-based disc-osteophytic bar complex encroaches upon a nterior aspect of spinal canal. Mild to moderate bilateral facet DJD. Mild to moderate central spinal canal stenosis. Mild to moderate bilateral neural foraminal stenosis. T12-L1: No central or neural foraminal stenosis. L1-2: L1 has bilateral accessory ribs. Mild disc bulge-broad osteophytic bar complex. Mild bilateral neural foraminal stenosis. Mild central stenosis. L2-3: Normal. L3-4: Mild diffuse disc bulge. Disc space maintained. Mild to moderate bilateral neural foraminal vladimir nosis. Mild central spinal canal stenosis. Posterior epidural fat pad. Moderate to severe thecal sac stenosis. L4-5: Disc space maintained. Mild bilateral neural foraminal stenosis. Generous caliber of spinal can al. Mild to moderate left facet DJD. Essentially normal right facet joint. L5-6: Bilateral chronic L5 pars interarticularis defects causing a grade 1 or grade 2 anterolisthesis of L5 on S1. Severe disc space narrowing. Endplate irregularity. Prominent diffuse disc-osteophytic bar complex. The osteophyte components especially protrude into the bilateral neural foramina causing very severe bilateral neural foraminal stenosis, severely chronically compressing and deforming, flattening the bilateral exiting L5 nerve roots. No central stenosis. L6-S1: Bilateral L6 transverse processes are completely fused with S1 sacral alae. No acquired centra l or neural foraminal stenosis. Accessory, hypoplastic bilateral facet joints are fused. IMPRESSION: 1. No compression fracture. 2. Transitional levels at thoracolumbar junction and lumbosacral junction. 3. Grade 1 or 2 spondylolisthesis at L5-6 due to bilateral L5 spondylolysis. 4. Extremely severe bilateral L5-6 neural foraminal stenosis chronically severely compressing the zain ateral exiting L5 nerve roots.
[2019-02-27] MEDS: Thiamine 100 MG TAB PO SCH (09:59)
[2019-02-27] MEDS: Docusate 100 MG CAP PO SCH ×2 (09:59→20:14)
[2019-02-27] MEDS: Allopurinol 300 MG TAB PO SCH (09:59)
[2019-02-27] MEDS: Amlodipine 10 MG TAB PO SCH (09:59)
[2019-02-27] MEDS: Folic Acid 1 MG TAB PO SCH (10:01)
[2019-02-27] MEDS: Enoxaparin Sodium 40 MG/0.4 ML SYRINGE SC SCH (10:01)
[2019-02-27] MEDS: Polyethylene Glycol 3350 17 GM Packet PO SCH (10:02)
[2019-02-27] MEDS ORDERED: GoLYTELY 4,000 ml Bottle PO SCH (13:00)
[2019-02-27 13:09] LABS: Smooth Muscle Total ABS 8 Units (0-19)
[2019-02-27 15:26] LABS: ANA Symphony (Qualitative) Negative (Negative); ANA Symphony (Quantitative) 0.2 Ratio (< 0.7 Negative); EliA Vaculitis New Method **** NEW METHOD ****; Mitochondrial Ab Less than 0.5 U/mL (<4 Negative); dsDNA IgG Antibody 0.6 IU/mL (<10 Negative)
--- NOTE | 2019-02-27 15:53 | PRG ---
DATE OF SERVICE: 02/27/2019 SUBJECTIVE: The patient reports that his right-sided pain is better, rated as a 3/10 today. Compared to when he was admitted, the pain is much less. He reports had a large bowel movement yesterday. Denies any nausea or vomiting. PHYSICAL EXAMINATION: VITAL SIGNS: Temperature 97.9, blood pressure 174/75, and pulse is 72. GENERAL: He is alert and conversant, in no distress. HEENT: Shows anicteric sclerae. Oropharynx is clear and moist. CV: Shows normal S1 and S2. Regular rate and rhythm. CHEST: Shows a breath sounds. ABDOMEN: Protuberant. There is some mild tympany. There is hepatomegaly with tenderness along the right edge and right flank. No visible rash. He has active bowel sounds. EXTREMITIES: Shows no edema. LABORATORY DATA: WBC 7.6, hemoglobin 12.5, and platelet count of 209. Electrolytes within normal range. Creatinine 0.82, bilirubin 1.4. AST 115, ALT 110, alkaline phosphatase 229. Smooth muscle antibody is normal. Hepatitis B and C antibodies negative. Thoracic spine CT was normal except for mild central canal stenosis at T11-T12 and lumbar spine CT showed L5-L6 foraminal stenosis. ASSESSMENT: 1. Acute on chronic right-sided pain. No define etiology based on CT of abdomen, ultrasound, and lumbar thoracic spine CT. Pain could be from hepatic capsular stretching from hepatomegaly or neuropathic pain. 2. Elevation of liver function tests. This is most likely from fatty liver from alcohol consumption. He typically consumes 6 pack of beer a day and more on the weekends. RECOMMENDATIONS: 1. Trial of gabapentin 300 mg daily to b.i.d. 2. Advanced diet. 3. The patient can be discharged home tomorrow. Office will schedule outpatient MRI/MRCP at [facility] as they have a large scanner. Job ID: [id number]
--- NOTE | 2019-02-27 16:22 | PDOC.HOSPP ---
- Subjective Encounter Date: 02/27/19 Encounter Time: 07:45 Subjective: ruq pain is better says he had a large mushy looking bm yesterday no nausea is amb in hallway, tolerating oral diet - Objective Vital Signs & Weight: Vital Signs (12 hours) Temp Pulse Resp BP BP Pulse Ox 02/27/19 11:27 97.9 F 72 20 174/75 H 90 L 02/27/19 09:59 69 184/77 H 02/27/19 08:48 91 L 02/27/19 08:00 91 L 02/27/19 07:57 97.7 F 68 20 172/70 H 91 L Weight Admit Weight 263 lb Weight 263 lb I&O: 02/26/19 02/27/19 02/28/19 06:59 06:59 06:59 Intake Total 2630 Output Total 750 Balance 1880 Result Diagrams: 02/25/19 07:08 02/26/19 06:00 Hospitalist ROS - Medication Medications: Active Medications Generic Name Dose Route Start Last Admin Trade Name Robert PRN Reason Stop Dose Admin Allopurinol 300 mg 02/24/19 09:00 02/27/19 09:59 Zyloprim PO 300 mg DAILY ARRON Administration Amlodipine Besylate 10 mg 02/24/19 09:00 02/27/19 09:59 Norvasc PO 10 mg DAILY ARRON Administration Bisacodyl 10 mg 02/24/19 12:26 02/26/19 08:51 Dulcolax HI 10 mg Q8H PRN Administration Constipation Docusate Sodium 100 mg 02/24/19 21:00 02/27/19 09:59 Colace PO 100 mg BID ARRON Administration Enoxaparin Sodium 40 mg 02/24/19 09:00 02/27/19 10:01 Lovenox SC 40 mg 0900 ARRON Administration Fentanyl 25 mcg 02/23/19 20:07 02/25/19 15:23 Sublimaze SLOW IVP 25 mcg Q2H PRN Administration Breakthrough Pain Folic Acid 1 mg 02/24/19 09:00 02/27/19 10:01 Folvite PO 1 mg DAILY ARRON Administration Multivitamins 10 ml/ Lactated 1,010 mls @ 75 mls/hr 02/23/19 18:00 02/26/19 17:25 Ringer's IV 1,010 mls Q24HR ARRON Administration Pantoprazole Sodium 40 mg 02/24/19 09:00 02/27/19 09:59 Protonix PO 40 mg DAILY ARRON Administration Polyethylene Glycol 17 gm 02/25/19 09:00 02/27/19 10:02 Miralax PO 17 gm DAILY ARRON Administration Sodium Chloride 10 ml 02/23/19 18:56 02/24/19 09:24 Flush - Normal Saline IVF 10 ml PRN PRN Administration Saline Flush Thiamine HCl 100 mg 02/24/19 09:00 02/27/19 09:59 Thiamine PO 100 mg DAILY ARRON Administration Tramadol HCl 100 mg 02/23/19 17:53 02/27/19 01:42 Ultram PO 100 mg TIDPRN PRN Administration Moderate to Severe Pain (6-10) - Exam General Appearance: awake alert Eye: PERRL, anicteric sclera ENT: no oropharyngeal lesions, moist mucosa Neck: supple, no JVD Heart: RRR, no murmur Respiratory: no wheezes, no rales Gastrointestinal: soft, non-distended, normal bowel sounds Extremities: no cyanosis, no edema Neurological: cranial nerve grossly intact, no focal deficits Psychiatric: normal affect, A&O x 3 Hosp A/P (1) Abdominal pain Code(s): R10.9 - UNSPECIFIED ABDOMINAL PAIN Status: Acute Qualifiers: Abdominal location: right upper quadrant Qualified Code(s): R10.11 - Right upper quadrant pain (2) Hepatomegaly Code(s): R16.0 - HEPATOMEGALY, NOT ELSEWHERE CLASSIFIED Status: Acute (3) Alcoholic hepatitis Code(s): K70.10 - ALCOHOLIC HEPATITIS WITHOUT ASCITES Status: Suspected Qualifiers: Ascites presence: without ascites Qualified Code(s): K70.10 - Alcoholic hepatitis without ascites (4) Obesity (BMI 30-39.9) Code(s): E66.9 - OBESITY, UNSPECIFIED Status: Chronic (5) Gout Code(s): M10.9 - GOUT, UNSPECIFIED Status: Chronic Qualifiers: Gout site: unspecified site (6) Hyperlipidemia Code(s): E78.5 - HYPERLIPIDEMIA, UNSPECIFIED Status: Chronic Qualifiers: Hyperlipidemia type: unspecified Qualified Code(s): E78.5 - Hyperlipidemia , unspecified (7) Hypertension Code(s): I10 - ESSENTIAL (PRIMARY) HYPERTENSION Status: Chronic Qualifiers: Hypertension type: essential hypertension Qualified Code(s): I10 - Essential (primary) hypertension (8) Prostate cancer Code(s): C61 - MALIGNANT NEOPLASM OF PROSTATE Status: Chronic - Plan doesn't fit in mri scanner here, pain is better is constipated, had one large bm yesterday, will give a liter of golytely to clear him up. ruq usg did not show evidence of portal/hepatic vein thrombosis, biliary ducts were not visualized well? is on norvasc, ultram and fentanyl prn, iv hydration/banana bag, protonix hemostable stool regimen, to ambulate in hallway dc plan in am on gabapentin bid trial to see if his ruq pain gets better, judicious use of narcotics to avoid resp depression
[2019-02-27] MEDS: Multivitamins, Adult 10 ML in Lactated Ringer's 1,000 ML IV SCH (18:10)
[2019-02-27] MEDS ORDERED: hydrALAZINE 20 MG/ML VIAL SLOW IVP PRN (20:02)
[2019-02-27] MEDS: Gabapentin 300 MG CAP PO SCH (20:14)
[2019-02-28 07:40] VITALS: BP 175/73; TEMP 98.2
[2019-02-28] MEDS: Docusate 100 MG CAP PO SCH (07:53)
[2019-02-28] MEDS: Amlodipine 10 MG TAB PO SCH (07:53)
[2019-02-28] MEDS: Thiamine 100 MG TAB PO SCH (07:53)
[2019-02-28] MEDS: Folic Acid 1 MG TAB PO SCH (07:54)
[2019-02-28] MEDS: Gabapentin 300 MG CAP PO SCH (07:54)
[2019-02-28] MEDS: Allopurinol 300 MG TAB PO SCH (07:54)
[2019-02-28] MEDS: Enoxaparin Sodium 40 MG/0.4 ML SYRINGE SC SCH (07:57)
[2019-02-28] MEDS: Polyethylene Glycol 3350 17 GM Packet PO SCH (08:05)
--- NOTE | 2019-03-01 03:34 | DIS ---
DATE OF ADMISSION: 02/23/2019 DATE OF DISCHARGE: 02/28/2019 DISCHARGE DIAGNOSES: 1. Right upper quadrant abdominal pain. 2. Hepatomegaly. 3. Alcoholic hepatitis. 4. Obesity. 5. Gout. 6. Hyperlipidemia. 7. Hypertension. 8. Prostate cancer. 9. Constipation. HISTORY OF PRESENT ILLNESS: This patient is a 68-year-old male, who was initially admitted from clinic with right upper quadrant abdominal pain. The pain had initially caused him to go to the emergency department previously. He had enlarged liver on the CT scan with elevated liver enzymes. He was seen by GI in an outpatient setting and subsequently referred for further evaluation. HOSPITAL COURSE: The patient was admitted with right upper quadrant abdominal pain and elevated liver enzymes. He had ultrasound showing a normal hepatic Doppler, heterogeneous echotexture of the liver may be due to this hepatic steatosis or hepatocellular disease, limited for evaluation for hepatic masses or intrahepatic biliary dilatation and splenomegaly was also noted. MRI was recommended. However, the patient was unable to have that done on the hospital's machine. He was noted to have significant constipation and was ultimately treated for that with some ultimate success. His hepatitis panel was unremarkable. DAVE screen negative and a mitochondrial negative, [id number] DNA negative. Smooth muscle antibody titer negative. With that the patient was ultimately tried on some gabapentin the day before discharge and he actually feels like that helped him. He was able to sleep well and was comfortable with plan for discharge. has intention to set the patient up for outpatient MRI and follow up in their office. DISPOSITION: 1. The patient is discharged to home. He will be on atorvastatin 20 mg daily. 2. Amlodipine 10 mg daily. 3. Protonix 40 mg daily. 4. Allopurinol 300 mg q.a.m. 5. Neurontin 300 mg b.i.d. 6. Folic acid 1 mg p.o. daily. PHYSICAL EXAMINATION: VITAL SIGNS: On the day of discharge, temperature was 98.2 pulse 67, respirations 175/73, O2 saturations 97% on room air. GENERAL: He is awake and alert, pleasant, cooperative. HEART: Regular rate and rhythm. LUNGS: Clear. ABDOMEN: Soft, not significantly tender. He does appear to have a little bit of hepatomegaly on exam. EXTREMITIES: With no cyanosis, clubbing or edema. DISPOSITION: Patient is discharged to home. FOLLOWUP: He will have outpatient [facility] He is encouraged to call their office 1st thing on Saturday, so that can be set up and then he can follow up with them as an outpatient. He is also encouraged to follow up with his PCP as his blood pressure continues to run somewhat high, which I believe is Dr. Salas. He is to have a heart healthy diet. His activity is as tolerated and he can return to the hospital at anytime should he have the need to do so. TIME SPENT: Total time in discharge activities was 31 minutes. Job ID: [id number]
--- NOTE | 2019-03-02 01:56 | PQF ---
DINO RUBIN DAVID R MD [id number] CLINICAL DOCUMENTATION CLARIFICATION FORM: POST DISCHARGE Addendum to original discharge summary date: ____ Late entry note date: __ DATE: 03/02/19 ATTN: Dino Gonsalez Please exercise your independent, professional judgment in responding to the clarification form. Clinical indicators are provided on the bottom of this form for your review In your clinical opinion based on clinical findings below, can you please identify the etiology of Right upper quadrant abdominal pain if due to: Please check appropriate box(s): [ ] Alcoholic Hepatitis [ ] Constipation [ ] Other diagnosis [ x ] Unable to determine In addition, please specify: Present on Admission (POA): [ ] Yes [ ] No [ ] Unable to determine For continuity of documentation, please document condition throughout progress notes and discharge summary. Thank You. CLINICAL INDICATORS - SIGNS / SYMPTOMS / LABS Hospitalist H&P p1 02/23 Dr Patel direct admit from Dr Min's office for 2x weeks of increasing right sided abdominal pain Hospitalist H&P p1 02/23 Dr Patel He was found to have have an enlarged liver on recent CT scan and elevated LFTs Hospitalist H&P p1 02/23 Dr Patel C/o of dysuria, constipation x2 days, normally drinks alcohol but has not had a drink in 3 weeks RISK FACTORS Hospitalist H&P p1 02/23 68 year-old, Male Hospitalist H&P p2 02/23 PMHX of GERD Hospitalist H&P p2 02/23 Hepatomegally Hospitalist H&P p2 02/23 Alcoholic Hepatitis TREATMENTS: MAY 13 Banana Bag MAY 13 IV Protonix MAY 13 - IV Fluids GE Consult 02/23 - Duane Almaraz (This form is maintained as a part of the permanent medical record) 2014 [employer]. All Rights Reserved [email or web address] [not provided] [email or web address]
[2019-03-02 12:09] LABS: Alpha-1-Antitrypsin 244 mg/dL (101-187)
== END 2019-02-28 12:54 | disposition home or self-care (01) | DRG 392 ==
LOC: T4-B 16:00
PROVIDERS: ADMIT Hospitalist; ATTEND Hospitalist
DX: R10.11 Right upper quadrant pain (principal); F10.188 Alcohol abuse with other alcohol-induced disorder; K70.10 Alcoholic hepatitis without ascites; R16.0 Hepatomegaly, not elsewhere classified; F17.290 Nicotine dependence, other tobacco product, uncomplicated; M10.9 Gout, unspecified; E78.5 Hyperlipidemia, unspecified; K21.9 Gastro-esophageal reflux disease without esophagitis; E66.9 Obesity, unspecified; K59.00 Constipation, unspecified; Z85.46 Personal history of malignant neoplasm of prostate; Z90.49 Acquired absence of other specified parts of digestive tract; Z79.899 Other long term (current) drug therapy; Z68.38 Body mass index [BMI] 38.0-38.9, adult
CPT/HCPCS: 36415; 71045; 72128; 72131; 74177; 76705; 80053; 80074; 81001; 82103; 82104; 83516; 83540; 83550; 83690; 84484; 85025; 85610; 85730; 86038; 86225; 87086; 93005; 96361; 96374; 96375; J0360; J1650; J2270; J2405; J3010; J7120; Q9967